=== PATIENT | male | born 1935 | race Caucasian/White ===

== ENCOUNTER 2022-09-07 09:19 | Inpatient (IN) ==
[2022-09-07] MEDS ORDERED: IOPAMIDOL 100 ML BOTTLE IV ONE (09:20)
--- NOTE | 2022-09-07 09:33 | Emergency Department Note ---
Neuro HPI General Chief Complaint: Stroke Symptoms Stated Complaint: STROKE SX Time Seen by Provider: 09/07/22 09:30 Source: patient and family () Mode of arrival: wheelchair Limitations: no limitations and altered mental status History of Present Illness HPI Narrative: Narrative: 87-year-old male presents to the emergency department because of acute onset left upper extremity weakness with decreased sensation. states it began at 9 AM. States he had some confusion last night when he chewed an antibiotic capsule instead of swallowing it. It was for a UTI. This morning he asked repeatedly what they were going to do today which was atypical. He was able to stand and walk without assistance. His hands seem to stop working on the left side. He also said it felt numb. He came to the emerged department for further evaluation. states that he had no speech difficulties and no facial asymme try. States that he fell 2 weeks ago primarily scraping his arms but did not require evaluation and did not apparently hit his head. Patient has history of atrial fibrillation for which she was taking a blood thinner but unable to tell us what blood thinner he is on presently. Has history of hypertension and stage IIIb kidney disease along with UTI and multiple other medical problems. On Anticoagulants: Yes Related Data Home Medications Medication Instructions Recorded Confirmed vit C 226 mg-vit E 90 mg-copper 1 cap PO QDAY 11/10/19 09/07/22 0.8 mg-zinc oxide-lutein 5 mg capsule (PreserVision Lutein) amiodarone 200 mg tablet 200 mg PO DAILY@1400 06/16/22 09/07/22 cyanocobalamin (vitamin B-12) 2,500 mcg PO DAILY 07/15/22 09/07/22 2,500 mcg tablet ferrous sulfate 325 mg (65 mg 650 mg PO QPMCC 07/15/22 09/07/22 iron) tablet cholecalciferol (vitamin D3) 50 2,000 unit PO DAILY 09/07/22 09/07/22 mcg (2,000 unit) capsule docusate sodium 50 mg capsule 50 mg PO DAILYP PRN Constipation 09/07/22 09/07/22 fluticasone propionate 50 1 spray intranasal DAILY 09/07/22 09/07/22 mcg/actuation nasal spray,suspension (Flonase Allergy Relief) omega-3 fatty acids 1,000 mg 1,000 mg PO HS 09/07/22 09/07/22 capsule propranolol 60 mg capsule,24 60 mg PO QDAY 09/07/22 09/07/22 hr,extended release Previous Rx's Medication Instructions Recorded tamsulosin 0.4 mg capsule 0.4 mg PO QHS #90 caps 06/16/22 carbamide peroxide 6.5 % ear drops 5 drp otic (ear) Q12H 4 days #15 mL 07/15/22 (Debrox) amlodipine 5 mg tablet 5 mg PO QDAY #90 tabs 08/22/22 cephalexin 500 mg capsule 500 mg PO QID #28 caps 09/01/22 Allergies Allergy/AdvReac Type Severity Reaction Status Date / Time benazepril [From Lotensin] AdvReac Mild Cough Verified 09/07/22 09:29 Review of Systems ROS ROS Narrative: Narrative: Constitutional: Denies fever Eyes: Denies eye discharge ENT ED: Denies throat pain Cardiovascular: Denies chest pain Respiratory: Denies shortness of breath Gastrointestinal: Denies abdominal pain, nausea or vomiting Genitourinary: Reports dysuria (Receiving antibiotics for UTI presently.) Musculoskeletal: Reports other (Left upper extremity unable to move his fingers or parts administrator normally. Also has decreased sensation in that extremity.); Denies back pain Integumentary: Denies rash Neurological: Reports headache (Mild) PFSH Narrative Patient History Narrative: Narrative: Medical/Surgical/Family History All Active Problems (Updated 09/07/22 @ 11:12 by Gildardo Velasquez MD) Acute UTI (Acute) Brain TIA (Acute) Hyperkalemia (Acute) Chronic kidney disease, stage 3b (Chronic) Sacral dysfunction (Acute) Chronic low back pain (Acute) Normocytic anemia (Acute) Atrial fibrillation (Acute) Cerumen impaction (Acute) Hypersomnia (Acute) Weakness (Acute) HLD (hyperlipidemia) (Acute) Medicare annual wellness visit, subsequent (Acute) GERD (gastroesophageal reflux disease) (Chronic) Pes planus (Chronic) Equinus deformity of foot, acquired (Chronic) Plantar fasciitis (Chronic) Tibial tendinitis, posterior (Chronic) Essential tremor (Chronic) Encounter for Health Maintenance Examination in Adult (Chronic) History of prostate biopsy (Chronic 04/14/07) History of esophagogastroduodenoscopy (Chronic 07/07/12) History of colonoscopy (Chronic 07/07/12) Urinary obstruction (Chronic) Asymptomatic premature ventricular contractions (Chronic 04/06/13) Prostate cancer (Chronic) Hypertension, essential (Chronic) Esophageal stricture (Chronic 04/06/13) Dysphagia (Chronic) Duodenal ulcer (Chronic 04/06/13) Constipation (Chronic) History of colonic polyps (Chronic) Back pain (Chronic) Actinic keratosis (Chronic) Medical History Actinic keratosis leukoplakia lower lip--retin-A--f/u Dr. Vega Asymptomatic premature ventricular contractions (04/06/13) see 03/2013 HPI Back pain H/O low back pain, lumbar radiculopathy--operated 2002. Pain Clinic sequence 2007, now stable Chronic low back pain Constipation Vague constipation sxs, occ. slight dysphagia, gassiness, abdominal fullness --all chronic and nonprogressive. Soft tissue neck CT 2008 Duodenal ulcer (04/06/13) see 03/2013 HPI Dysphagia 07/17/12--EDG--Dr. Jewell--Esophageal stricture with dilation, hiatal hernia, acute duodenal ulcers. Negative JEANNE test. Biopsy pending. 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 Jewell Hypertension, essential Medicare annual wellness visit, subsequent Pes planus 06/13/2015[place] Plantar fasciitis 06/13/2015[place] Prostate cancer Prostate Biopsy 04/14/07 w/combined Janet's score of 6. Seed implant 05/2007, Dr. Lorne White. Obstructive symptoms resolved. 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 Negative JEANNE test. Biopsy pending. History of prostate biopsy (04/14/07) Prostate biopsy 04/04. Combined [place]'s score 6. Prostate seed implant 06/04, Dr. Lorne White. Family History Unknown Essential hypertension Cerebrovascular accident Brother Malignant neoplasm Brother-prostate CA 2nd brother CA pancreas Social History Smoking Status: Never smoker Alcohol Intake Frequency: does not drink Substance Use: does not use Exam Narrative Narrative: Narrative: General Limitations: no limitations and altered mental status General appearance: Present alert and in no apparent distress Head Head: Present atraumatic and normocephalic Eye Eye: Present normal appearance; Absent scleral icterus ENT ENT: Present normal oropharynx, mucous membranes moist and normal external ear exam Neck Neck: Present normal inspection Respiratory Respiratory: Present normal lung sounds bilaterally; Absent respiratory distress Cardiovascular Cardiovascular: Present regular rate and normal rhythm Adbominal Abdominal: Present soft; Absent tenderness Extremities Extremities: Present other (Right hand able to parts administrator normally. Left hand able to parts administrator well though may be slight weakness. ) Back Back: Present normal inspection; Absent tenderness Neurological Neurological: Present alert, oriented X3 and other (Xkptev-ly-[id number] coordination left upper extremity slightly off.) Psychiatric Psychiatric: Present normal affect and normal mood Skin Skin: Present warm (WNL) and dry Course Reevaluation(s) Reevaluation #1: At this time patient states that his left upper extremity is back to normal. No loss of sensation and no weakness. Advised patient that we would be admitting him to the hospital most likely for his stroke or TIA. Time: 10:55 Consultations Consultation #1: Dr. Light: if on thinner, not a candidate for TPA. poss. CVA vs. TIA. check CT. Time: 09:38 Consultation #2: Discussed with Dr. Light. He recommends admission to the hospital under local stroke protocol. Time: 10:55 Vital Signs Vital signs: Vital Signs Temperature 97 F 09/07/22 09:20 Pulse Rate 62 09/07/22 09:20 Respiratory Rate 18 09/07/22 09:20 Blood Pressure 124/57 09/07/22 09:20 Pulse Oximetry (%) 100 09/07/22 09:20 Oxygen Delivery Method Room Air 09/07/22 09:20 Temperature 97.8 F 09/07/22 20:01 Pulse Rate 58 L 09/07/22 20:01 Respiratory Rate 19 09/07/22 20:01 Blood Pressure 118/60 09/07/22 20:01 Pulse Oximetry (%) 100 09/07/22 20:01 Oxygen Delivery Method Room Air 09/07/22 20:01 MDM MDM Narrative Medical decision making narrative: Narrative: 87-year-old male with sudden onset left upper extremity weakness this morning 9 AM. Differential includes acute stroke, thrombotic versus embolic. Possible vessel occlusion. TIA. Peripheral nerve palsy. CT scan of the head was obtained and was read by the radiologist as unrem arkable. CT angiogram of the head and neck did not show acute vessel obstruction. There was some calcifications. Maximal occlusion approximately 30%. White count normal at 7.4. Hemoglobin mildly low at 13.1. INR was 1.2. Electrolytes were normal. BUN mildly elevated at 29 with creatinine elevated at 1.8. Previous creatinine 6 days ago was 1.5. Glucose was normal. Case was discussed with Dr. Light the teleneurologist. He will review the CT scan and advise subsequently. Discussed with Dr. Anya Mistry. He also sent over note. CT scan of the head was negative CTA did not require acute intervention he recommends admit for local stroke protocol with blood pressure management. Recommends n.p.o. until swallow and to hold anticoagulation until the MRI of the brain. Recommends aspirin 81 m g in the interim which I will order here in the ER. Discussed with the patient and spouse and have placed a call to the hospitalist for admission. Requested hospitalist at 11:00 to discuss admission. Hospitalist reviewed the chart and accepted the patient for admission. Sepsis Sepsis Identified: No Lab Data 09/07/22 08:30 Labs: Lab Results 09/07/22 09/07/22 09/07/22 Range/Units 08:30 08:30 08:30 WBC 7.4 (4.5-11.0) K/mcL RBC 4.05 L (4.63-6.08) M/mcL Hgb 13.1 L (13.7-17.5) g/dL Hct 39.5 L (40.1-51.0) % POC Hct (41-55) MCV 97.5 (80.0-100.0) fL MCH 32.3 (26.0-34.0) pg MCHC 33.2 (31.0-36.0) g/dL RDW 13.8 (11.5-14.5) % Plt Count 218 (140-440) K/mcL MPV 10.3 (8.8-12.5) fL Immature Gran % (Auto) 0.5 (0.0-0.5) % Neut % (Auto) 56.2 (38.0-78.0) % Lymph % (Auto) 28.0 (15.5-49.0) % [place] % (Auto) 12.0 (1.0-12.0) % Eos % (Auto) 2.6 (0.0-7.0) % Baso % (Auto) 0.7 (0.0-2.0) % Lymph # (Auto) 2.07 (1.50-4.80) K/mcL [place] # (Auto) 0.89 (0.10-0.90) K/mcL Eos # (Auto) 0.19 (0.00-0.70) K/mcL Baso # (Auto) 0.05 (0.00-0.30) K/mcL Immature Gran # 0.04 (0.00-0.05) K/mcl Absolute Neutrophils 4.16 (1.80-8.00) K/mcL POC PT (11.9-14.5) POC INR (0.8-1.2) APTT 32.2 (20.0-37.0) sec POC Sodium (133-145) POC Potassium (3.3-5.1) POC Chloride (96-108) POC Total CO2 (22-30) POC BUN (6-20) POC Creatinine (0.6-1.2) POC Glucose (70-105) POC WB Ioniz Calcium (1.16-1.32) Total Bilirubin 0.3 (0.1-1.0) mg/dL Direct Bilirubin < 0.2 (0-0.3) mg/dL AST 24 (<40) U/L ALT 21 (<40) U/L Alkaline Phosphatase 124 H (39-117) U/L Total Protein 7.0 (5.9-8.4) gm/dL Albumin 4.1 (3.2-5.2) gm/dL Globulin 2.9 (2.2-3.7) gm/dL Urine Color Urine Appearance (Clear) Urine pH (5.0-9.0) Ur Specific [place] (1.000-1.035) Urine Protein (Negative) mg/dL Urine Glucose (UA) (Negative) mg/dL Urine Ketones (Negative) mg/dL Urine Occult Blood (Negative) mg/dL Urine Nitrate (Negative) Urine Bilirubin (Negative) mg/dL Urine Urobilinogen mg/dL Ur Leukocyte Esterase (Negative) /uL Ur Culture Indicated? 09/07/22 09/07/22 09/07/22 Range/Units 09:13 09:38 11:05 WBC (4.5-11.0) K/mcL RBC (4.63-6.08) M/mcL Hgb (13.7-17.5) g/dL Hct (40.1-51.0) % POC Hct 39.0 L (41-55) MCV (80.0-100.0) fL MCH (26.0-34.0) pg MCHC (31.0-36.0) g/dL RDW (11.5-14.5) % Plt Count (140-440) K/mcL MPV (8.8-12.5) fL Immature Gran % (Auto) (0.0-0.5) % Neut % (Auto) (38.0-78.0) % Lymph % (Auto) (15.5-49.0) % [place] % (Auto) (1.0-12.0) % Eos % (Auto) (0.0-7.0) % Baso % (Auto) (0.0-2.0) % Lymph # (Auto) (1.50-4.80) K/mcL [place] # (Auto) (0.10-0.90) K/mcL Eos # (Auto) (0.00-0.70) K/mcL Baso # (Auto) (0.00-0.30) K/mcL Immature Gran # (0.00-0.05) K/mcl Absolute Neutrophils (1.80-8.00) K/mcL POC PT 13.8 (11.9-14.5) POC INR 1.2 (0.8-1.2) APTT (20.0-37.0) sec POC Sodium 141 (133-145) POC Potassium 3.9 (3.3-5.1) POC Chloride 106 (96-108) POC Total CO2 27.0 (22-30) POC BUN 29 H (6-20) POC Creatinine 1.8 H (0.6-1.2) POC Glucose 85 (70-105) POC WB Ioniz Calcium 1.24 (1.16-1.32) Total Bilirubin (0.1-1.0) mg/dL Direct Bilirubin (0-0.3) mg/dL AST (<40) U/L ALT (<40) U/L Alkaline Phosphatase (39-117) U/L Total Protein (5.9-8.4) gm/dL Albumin (3.2-5.2) gm/dL Globulin (2.2-3.7) gm/dL Urine Color Straw Urine Appearance Clear (Clear) Urine pH 6.0 (5.0-9.0) Ur Specific [place] 1.039 (1.000-1.035) Urine Protein Negative (Negative) mg/dL Urine Glucose (UA) Negative (Negative) mg/dL Urine Ketones Negative (Negative) mg/dL Urine Occult Blood Negative (Negative) mg/dL Urine Nitrate Negative (Negative) Urine Bilirubin Negative (Negative) mg/dL Urine Urobilinogen Negative mg/dL Ur Leukocyte Esterase Negative (Negative) /uL Ur Culture Indicated? No EKG Data EKG #1: EKG attestation: Yes I reviewed and interpreted this EKG. EKG shows normal: sinus rhythm Rate: normal Rhythm: NSR [place]/QRS: normal Voltage: normal Heart block present: 1st Degree ST segment elevation in: None ST segment depression in: None Hyperacute T waves: None QRS morphology: Present normal Interpretation: other (Abnormal EKG. First-degree heart block.) Discharge Plan Patient/Caregiver Discharge Instructions Pt seen by SKIP PIT WORKER/PA only: No Clinical Impression: Brain TIA Patient Disposition: Xfer As Inpt ([facility]) Condition: Serious Discharge Date/Time: 09/07/22 13:51
[2022-09-07 09:42] LABS: POC Calcium, Ionized 1.24 (1.16-1.32); POC Creatinine 1.8 (0.6-1.2); POC Potassium 3.9 (3.3-5.1)
[2022-09-07 10:08] LABS: Basophils # (Auto) 0.05 K/mcL (0.00-0.30); Basophils % (Auto) 0.7 % (0.0-2.0); Eosinophils # (Auto) 0.19 K/mcL (0.00-0.70); Eosinophils % (Auto) 2.6 % (0.0-7.0); Hematocrit 39.5 % (40.1-51.0); Hemoglobin 13.1 g/dL (13.7-17.5); Lymphocytes # (Auto) 2.07 K/mcL (1.50-4.80); Mean Cell Volume 97.5 fL (80.0-100.0); Mean Corpuscular HGB Conc 33.2 g/dL (31.0-36.0); Mean Platelet Volume 10.3 fL (8.8-12.5); Monocytes # (Auto) 0.89 K/mcL (0.10-0.90); Neutrophils % (Auto) 56.2 % (38.0-78.0); Platelet Count 218 K/mcL (140-440); RBC 4.05 M/mcL (4.63-6.08); Red Cell Distribution Width 13.8 % (11.5-14.5); WBC 7.4 K/mcL (4.5-11.0)
[2022-09-07 10:15] LABS: POC INR 1.2 (0.8-1.2); POC Pro Time 13.8 (11.9-14.5)
[2022-09-07] MEDS ORDERED: ASPIRIN 81 MG TAB.CHEW CHEWED ONE (11:03)
[2022-09-07 11:19] LABS: ALT/SGPT 21 U/L (<40); AST/SGOT 24 U/L (<40); Albumin 4.1 gm/dL (3.2-5.2); Alkaline Phosphatase 124 U/L (39-117); Bilirubin,Direct < 0.2 mg/dL (0-0.3); Bilirubin,Total 0.3 mg/dL (0.1-1.0); Globulin 2.9 gm/dL (2.2-3.7)
[2022-09-07 11:52] LABS: Appearance,Urine CLEAR (Clear); Bilirubin,Urine Negative (Negative); Color,Urine STRAW; Culture Indicated,Urine No; Glucose,Urine (UA) Negative (Negative); Ketones,Urine Negative (Negative); Leukocyte Esterase,Urine Negative /uL (Negative); Nitrate,Urine Negative (Negative); Protein,Urine Negative (Negative); Specific Gravity,Urine 1.039 (1.000-1.035); Urine Blood Negative (Negative); Urobilinogen,Urine Negative
[2022-09-07] MEDS ORDERED: ONDANSETRON 4 MG/2 ML VIAL IV PRN (13:53)
[2022-09-07] MEDS ORDERED: ACETAMINOPHEN 325 MG TABLET PO PRN (13:53)
--- NOTE | 2022-09-07 14:35 | Internal Med History&Physical ---
HPI History of Present Illness Patient information: Note initiated : 09/07/22 at 2:30 pm Service Date, if different from initiated Date: [] Patient: Sherman Sims a 87 y/o M admitted on 09/07/22 for STROKE SX. Chief Complaint: [Left upper extremity hemiparesis] Chief complaint: Left upper extremity numbness History of present illness: Mr. Sims is a 87 year old M with a past medical history significant for atrial fibrillation, BPH, hyperlipidemia, and CKD stage III who presents to the hospital with left upper extremity hemiparesis which started this morning around 9 AM. The patient overall is a poor historian and history is obtained secondhand from chart review, and nursing. He was in his usual state of health however was recently being treated for suspected urinary tract infection with Keflex. Per his , he began to experience left-sided hemiparesis this morning. There is no evidence of visual disturbance, gait disturbance, or aphasia. The patient was brought to the ER for further management and evalu ation of suspected stroke. On arrival he was hemodynamically stable and afebrile. The telemetry stroke service was consulted and tPA was not given as the patient is on anticoagulation. His symptoms resolved within 24-hour period. The hospital service was asked to admit the patient for further management and evaluation of suspected TIA. Of note, the patient walks with a cane. He did have a recent fall 2 weeks ago. Medication reconciliation is pending. It is unclear if the patient is definitively still on anticoagulation. It is not on his home medication list that was faxed per the . Further clarification will be needed Review of Systems All systems: reviewed and no additional remarkable complaints except as stated Constitutional Constitutional: Present as per HPI EENT Eyes: Present as per HPI; Absent blurry vision Cardiovascular Cardiovascular: Present as per HPI; Absent chest pain, dyspnea, dyspnea on exertion, leg edema or palpatations Respiratory Respiratory: Present as per HPI; Absent cough, dyspnea, dyspnea on exertion, wheezing or stridor Gastrointestinal Gastrointestinal: Present as per HPI; Absent abdominal pain, diarrhea, dysphagia, hematemesis, melena, nausea or vomiting Musculoskeletal Musculoskeletal: Present as per HPI; Absent joint swelling, limited range of motion, muscle cramps, muscle weakness or myalgias Integumentary Integumentary: Present as per HPI; Absent erythema, new lesions, rash or wounds Neurological Neurological: Present as per HPI; Absent abnormal gait, behavioral changes, focal weakness, headache(s), loss of vision, numbness, sensory deficit or syncope Endocrine Endocrine: Absent change in body appearance, fatigue or heat intolerance Hematologic/Lymphatic Hematologic/Lymphatic: Present as per HPI PFSH PFSH All Active Problems (Updated 09/07/22 @ 11:12 by Gildardo Velasquez MD) Acute UTI (Acute) Brain TIA (Acute) Hyperkalemia (Acute) Chronic kidney disease, stage 3b (Chronic) Sacral dysfunction (Acute) Chronic low back pain (Acute) Normocytic anemia (Acute) Atrial fibrillation (Acute) Cerumen impaction (Acute) Hypersomnia (Acute) Weakness (Acute) HLD (hyperlipidemia) (Acute) Medicare annual wellness visit, subsequent (Acute) GERD (gastroesophageal reflux disease) (Chronic) Pes planus (Chronic) Equinus deformity of foot, acquired (Chronic) Plantar fasciitis (Chronic) Tibial tendinitis, posterior (Chronic) Essential tremor (Chronic) Encounter for Health Maintenance Examination in Adult (Chronic) History of prostate biopsy (Chronic 04/14/07) History of esophagogastroduodenoscopy (Chronic 07/07/12) History of colonoscopy (Chronic 07/07/12) Urinary obstruction (Chronic) Asymptomatic premature ventricular contractions (Chronic 04/06/13) Prostate cancer (Chronic) Hypertension, essential (Chronic) Esophageal stricture (Chronic 04/06/13) Dysphagia (Chronic) Duodenal ulcer (Chronic 04/06/13) Constipation (Chronic) History of colonic polyps (Chronic) Back pain (Chronic) Actinic keratosis (Chronic) Medical History Actinic keratosis leukoplakia lower lip--retin-A--f/u Dr. Vega Asymptomatic premature ventricular contractions (04/06/13) see 03/2013 HPI Back pain H/O low back pain, lumbar radiculopathy--operated 2002. Pain Clinic sequence 2007, now stable Chronic low back pain Constipation Vague constipation sxs, occ. slight dysphagia, gassiness, abdominal fullness--all chronic and nonprogressive. Soft tissue neck CT 2008 Duodenal ulcer (04/06/13) see 03/2013 HPI Dysphagia 07/17/12--EDG--Dr. Jewell--Esophageal stricture with dilation, hiatal hernia, acute duodenal ulcers. Negative JEANNE test. Biopsy pending. 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 Jewell Hypertension, essential Medicare annual wellness visit, subsequent Pes planus 06/13/2015[place] Plantar fasciitis 06/13/2015[place] Prostate cancer Prostate Biopsy 04/14/07 w/combined Janet's score of 6. Seed implant 05/2007, Dr. Lorne White. Obstructive symptoms resolved. 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 Jewell--Esophageal stricture with dilation, hiatal hernia, acute duodenal ulcers. Negative JEANNE test. Biopsy pending. History of prostate biopsy (04/14/07) Prostate biopsy 04/04. Combined Janet's score 6. Prostate seed implant 06/04, Dr. Lorne White. Family History Unknown Essential hypertension Cerebrovascular accident Brother Malignant neoplasm Brother-prostate CA 2nd brother CA pancreas Social History household members: spouse housing: house lives independently: Yes marital status: education level: college occupational status: retired smoking status: Never smoker alcohol intake frequency: does not drink substance use type: does not use MEDS/ALLERGIES Home Medications and Allergies Home Medications Medication Instructions Recorded Confirmed Type vit C 226 mg-vit E 90 mg-copper 1 cap PO QDAY 11/10/19 09/07/22 History 0.8 mg-zinc oxide-lutein 5 mg capsule (PreserVision Lutein) amiodarone 200 mg tablet 200 mg PO DAILY@1400 06/16/22 09/07/22 History tamsulosin 0.4 mg capsule 0.4 mg PO QHS #90 caps 06/16/22 09/07/22 Rx carbamide peroxide 6.5 % ear drops 5 drp otic (ear) Q12H 4 days #15 mL 07/15/22 09/07/22 Rx (Debrox) cyanocobalamin (vitamin B-12) 2,500 mcg PO DAILY 07/15/22 09/07/22 History 2,500 mcg tablet ferrous sulfate 325 mg (65 mg 325 mg PO QAC 07/15/22 09/07/22 History iron) tablet amlodipine 5 mg tablet 5 mg PO QDAY #90 tabs 08/22/22 09/07/22 Rx cephalexin 500 mg capsule 500 mg PO QID #28 caps 09/01/22 09/07/22 Rx cholecalciferol (vitamin D3) 50 2,000 unit PO DAILY 09/07/22 09/07/22 History mcg (2,000 unit) capsule docusate sodium 50 mg capsule 50 mg PO DAILYP PRN Constipation 09/07/22 09/07/22 History fluticasone propionate 50 1 spray intranasal DAILY 09/07/22 09/07/22 History mcg/actuation nasal spray,suspension (Flonase Allergy Relief) omega-3 fatty acids 1,000 mg 1,000 mg PO DAILY 09/07/22 09/07/22 History capsule propranolol 60 mg capsule,24 60 mg PO QDAY 09/07/22 09/07/22 History hr,extended release Allergies Allergy/AdvReac Type Severity Reaction Status Date / Time benazepril [From Lotensin] AdvReac Mild Cough Verified 09/07/22 09:29 EXAM Constitutional Vitals: Temp Pulse Resp BP Pulse Ox O2 Del Method 97 F 59 L 21 115/76 96 Room Air 09/07/22 09:20 09/07/22 13:15 09/07/22 13:15 09/07/22 13:15 09/07/22 13:15 09/07/22 09:36 General appearance: average body habitus Head Head exam: Present atraumatic, normal inspection and normocephalic Eye Eye exam: Present EOMI, normal appearance and PERRL; Absent conjunctival injection ENT ENT exam: Present normal exam; Absent mucous membranes dry Neck Neck exam: Present full ROM; Absent lymphadenopathy Respiratory Respiratory exam: Present normal respiratory exam and CTAB; Absent decreased breath sounds, respiratory distress or wheezes Cardiovascular Cardiovascular exam: Present normal rate and rhythm and RRR; Absent JVD GI/Abdominal GI/Abdominal exam: Present normal bowel sounds and soft; Absent diminished bowel sounds, distended, guarding, mass, rebound or tenderness Neurological Exam Neurological exam: Present alert, CN II-XII intact and oriented X3 Psychiatric Psychiatric exam: Present normal affect and normal mood Skin Skin exam: Present intact and warm; Absent erythema, pallor, petechiae or rash DATA Data Completed and Pending Labs: Labs from last 24 hours 09/07/22 09/07/22 09/07/22 11:05 09:38 09:13 WBC RBC Hgb Hct POC Hct 39.0 L MCV MCH MCHC RDW Plt Count MPV Immature Gran % (Auto) Neut % (Auto) Lymph % (Auto) [place] % (Auto) Eos % (Auto) Baso % (Auto) Lymph # (Auto) [place] # (Auto) Eos # (Auto) Baso # (Auto) Immature Gran # Absolute Neutrophils POC PT 13.8 POC INR 1.2 APTT POC Sodium 141 POC Potassium 3.9 POC Chloride 106 POC Total CO2 27.0 POC BUN 29 H POC Creatinine 1.8 H POC Glucose 85 POC WB Ioniz Calcium 1.24 Total Bilirubin Direct Bilirubin AST ALT Alkaline Phosphatase Total Protein Albumin Globulin Urine Color Straw Urine Appearance Clear Urine pH 6.0 Ur Specific [place] 1.039 Urine Protein Negative Urine Glucose (UA) Negative Urine Ketones Negative Urine Occult Blood Negative Urine Nitrate Negative Urine Bilirubin Negative Urine Urobilinogen Negative Ur Leukocyte Esterase Negative Ur Culture Indicated? No 09/07/22 09/07/22 09/07/22 08:30 08:30 08:30 WBC 7.4 RBC 4.05 L Hgb 13.1 L Hct 39.5 L POC Hct MCV 97.5 MCH 32.3 MCHC 33.2 RDW 13.8 Plt Count 218 MPV 10.3 Immature Gran % (Auto) 0.5 Neut % (Auto) 56.2 Lymph % (Auto) 28.0 [place] % (Auto) 12.0 Eos % (Auto) 2.6 Baso % (Auto) 0.7 Lymph # (Auto) 2.07 [place] # (Auto) 0.89 Eos # (Auto) 0.19 Baso # (Auto) 0.05 Immature Gran # 0.04 Absolute Neutrophils 4.16 POC PT POC INR APTT 32.2 POC Sodium POC Potassium POC Chloride POC Total CO2 POC BUN POC Creatinine POC Glucose POC WB Ioniz Calcium Total Bilirubin 0.3 Direct Bilirubin < 0.2 AST 24 ALT 21 Alkaline Phosphatase 124 H Total Protein 7.0 Albumin 4.1 Globulin 2.9 Urine Color Urine Appearance Urine pH Ur Specific [place] Urine Protein Urine Glucose (UA) Urine Ketones Urine Occult Blood Urine Nitrate Urine Bilirubin Urine Urobilinogen Ur Leukocyte Esterase Ur Culture Indicated? A/P Assessment and plan (1) Acute UTI: Status: Acute (2) Brain TIA: Status: Acute (3) Chronic kidney disease, stage 3b: Status: Chronic (4) Atrial fibrillation: Status: Acute Narrative A/P Narrative: The patient's symptoms are consistent with TIA that may have been cardioembolic in etiology as he does have a history of atrial fibrillation. His anticoagulation status needs to be clarified. At this time he will likely need to continue Eliquis for secondary stroke prevention. CTA head and neck are pending. MRI is pending. Will obtain an echocardiogram. He will be monitored on telemetry. Medication reconciliation is pending. We will update POLST once received. Per patient's report, he would like to be full code for the time being. Time Spent With Patient Time: Total time spent is greater than 50% in coordination of care (as documented) at patient's floor/unit and/or counseling patient: Initial: Total time with patient: 75 - 90 minutes QUALITY Stroke Symptom Onset Unknown: No
--- NOTE | 2022-09-07 14:46 | Cat Scan Report ---
CLINICAL INFORMATION: Code stroke COMPARISON: None. TECHNIQUE: 2.5 mm helical slices were obtained in the skull base to vertex. Following reconstruction, axial reformatted images were reviewed at bone and parenchymal windows. The exam was performed using radiation dose optimization techniques including, but not limited to, automated exposure control, adjustment of the mA and/or kV according to patient size and use of iterative reconstruction technique. FINDINGS: The ventricles, sulci, fissures, and cisterns are symmetrically enlarged compatible with moderate age-related atrophy. No extra-axial fluid collections are identified. Moderate patchy chronic ischemic changes, in the deep cerebral white matter, are expected for age. A 6 mm remote lacunar infarct is seen in the right caudate nucleus. There is also a 5 mm lacunar infarct in the left lentiform nucleus. There is no hemorrhage, mass effect, or edema. Bone windows show no osseous abnormality. IMPRESSION: Moderate atrophy and chronic ischemic changes in the deep cerebral white matter-expected for age. Remote lacunar infarcts in the basal ganglia. No intracerebral hemorrhage, edema or other acute finding. Interpreted and Authenticated by: Heladio Cortés 09/07/22
--- NOTE | 2022-09-07 14:53 | Cat Scan Report ---
CLINICAL INFORMATION: Code stroke COMPARISON: None. TECHNIQUE: 80 cc of Isovue-370 were injected intravenously , and using SmartPrep to maximize cerebral arterial opacification, 0.625 mm helical slices were obtained from the skull base through the cerebral vertex. Following reconstruction , sagittal, coronal and axial reformatted images were processed and reviewed at multiple windows and levels. 3D volume rendered and MIP images were acquired at a independent workstation. The exam was performed using radiation dose optimization techniques including, but not limited to, automated exposure control, adjustment of the mA and/or kV according to patient size and use of iterative reconstruction technique. FINDINGS: The intracranial internal carotid, vertebral, basilar, anterior, middle and posterior cerebral arteries and their branches are well-opacified and normal in contour and caliber without significant stenosis, occlusion or other pathology. Superficial/deep cerebral veins and deep venous sinuses are widely patent IMPRESSION: Normal exam Interpreted and Authenticated by: Heladio Cortés 09/07/22
--- NOTE | 2022-09-07 15:30 | Cat Scan Report ---
CLINICAL INFORMATION: Code stroke COMPARISON: None. TECHNIQUE: 80 cc of Isovue-300 were injected intravenously followed by 40 cc of normal saline flush. Using SmartPrep, 0.625 helical slices were obtained from the thoracic aortic arch through the beaver of Dior. Following reconstruction, 2.5 mm sagittal, coronal and axial reformatted images were processed. MIPS , 3-D volume rendering and CPR images were also constructed. The exam was performed using radiation dose optimization techniques including, but not limited to, automated exposure control, adjustment of the mA and/or kV according to patient size and use of iterative reconstruction technique. FINDINGS: The thoracic aortic arch is normal diameter with minimal intimal thickening. Left vertebral artery originates roughly from the thoracic aortic arch-a normal variant. There is a 50% stenosis of the origin of the left vertebral artery. Both common, internal and external carotid and brachycephalic subclavian and right vertebral arteries are widely patent. Moderate mucosal thickening present in both maxillary sinuses compatible with sinusitis. No significant soft tissue abnormality. IMPRESSION: Thoracic aortic arch, all carotid, subclavian, left vertebral arteries are widely patent. A mild (less than 50% stenosis) of the left vertebral artery origin. Left vertebral artery originates from the thoracic aortic arch-normal variant. Mild bilateral maxillary sinusitis. Interpreted and Authenticated by: Heladio Cortés 09/07/22
[2022-09-07] MEDS ORDERED: CARBAMIDE PEROXIDE OTIC SOL 15ML AD SCH (16:00)
[2022-09-07] MEDS: AMIODARONE HCL 200 MG TABLET PO SCH (17:20)
[2022-09-07] MEDS: CEPHALEXIN 500 MG CAPSULE PO SCH ×2 (17:20→21:55)
[2022-09-07] MEDS: 0.9 % SODIUM CHLORIDE 10 ML SYRINGE IV SCH ×2 (17:21→21:55)
[2022-09-07] MEDS ORDERED: SENNOSIDES 1 TABLET PO SCH (21:00)
[2022-09-07] MEDS ORDERED: ATORVASTATIN 40 MG TABLET PO SCH (21:00)
[2022-09-07] MEDS ORDERED: TAMSULOSIN 0.4 MG CAPSULE PO SCH (21:00)
[2022-09-07] MEDS: DOCUSATE SODIUM 100 MG CAPSULE PO SCH (21:54)
[2022-09-08] MEDS: 0.9 % SODIUM CHLORIDE 10 ML SYRINGE IV SCH ×2 (04:58→14:18)
[2022-09-08 06:26] LABS: Basophils # (Auto) 0.03 K/mcL (0.00-0.30); Basophils % (Auto) 0.4 % (0.0-2.0); Eosinophils # (Auto) 0.14 K/mcL (0.00-0.70); Eosinophils % (Auto) 2.1 % (0.0-7.0); Hematocrit 37.9 % (40.1-51.0); Hemoglobin 12.9 g/dL (13.7-17.5); Mean Cell Volume 93.8 fL (80.0-100.0); Mean Platelet Volume 9.5 fL (8.8-12.5); Monocytes # (Auto) 0.85 K/mcL (0.10-0.90); Monocytes % (Auto) 12.7 % (1.0-12.0); Neutrophils % (Auto) 60.4 % (38.0-78.0); Platelet Count 211 K/mcL (140-440); RBC 4.04 M/mcL (4.63-6.08); Red Cell Distribution Width 13.5 % (11.5-14.5); WBC 6.7 K/mcL (4.5-11.0)
[2022-09-08 06:45] LABS: Blood Urea Nitrogen 26 mg/dL (8-23); Calcium 8.7 mg/dL (8.6-10.4); Carbon Dioxide 20 mmol/L (22-30); Chloride 108 mmol/L (96-108); Glomerular Filtration Rate 44; Glucose 91 mg/dL (70-105); HDL Cholesterol 46 mg/dL (>40); LDL Cholesterol,Calculated 108 mg/dL (<100); Non-HDL Cholesterol 132 mg/dL (<130); Triglycerides 121 mg/dL (<150)
--- NOTE | 2022-09-08 07:25 | EKG ---
[facility] Test Date: 2022-09-07 Pat Name: Sherman Sims Department: ED Room: Gender: Male Senior It Assistant: : [id number] Requested By: Gildardo Velasquez Order Number: [id number] Reading MD: Heladio Silva M.D. Measurements Intervals [place] Rate: 61 P: 0 ME: 72 QRS: 80 QRSD: 101 T: 56 QT: 463 QTc: 468 Interpretive Statements Sinus rhythm Electronically Signed On 09-08-2022 7:24:45 PDT by Heladio Silva M.D. /[facility] [place]0/[id number]
[2022-09-08] MEDS ORDERED: FLUTICASONE PROPIONATE SPRAY.NAS NS SCH (09:00)
[2022-09-08] MEDS ORDERED: ASPIRIN 81 MG TAB.CHEW CHEWED SCH (09:00)
[2022-09-08] MEDS: DOCUSATE SODIUM 100 MG CAPSULE PO SCH (09:59)
--- NOTE | 2022-09-08 13:27 | Magnetic Resonance Report ---
History: Left upper extremity hemiparesis beginning on 09/07/22. Symptoms had resolved within 24 hours TECHNIQUE: Stroke protocol was performed using multiple pulse sequences. Endings: There is a cluster of five small petechial nonhemorrhagic infarcts in the cortex high in the right parietal lobe. The largest is located laterally and measures 4 x 8 mm. There is no surrounding edema and no hemorrhage is present. These were not seen on the prior CT scan. Patient has age-related degenerative changes with mild to moderate generalized atrophy. There is moderate dilatation of the lateral third ventricles. Large confluent areas of abnormal increased signal are present in the wolfe radiata and centrum semiovale throughout the frontal and parietal lobes with milder involvement in the posterior temporal and occipital lobes. No abnormal extra-axial fluid collection is present. IMPRESSION: Small recent infarcts in the cortex involving the right parietal lobe Moderate age-related degenerative changes Interpreted and Authenticated by: Saad Silva 09/08/22
[2022-09-08] MEDS: AMIODARONE HCL 200 MG TABLET PO SCH (14:18)
--- NOTE | 2022-09-08 15:11 | Discharge Summary ---
Discharge Provider Provider IMPORTANT FOLLOW-UP INFORMATION FOR PCP: 1. Discuss anticoagulation 2. MoCA eval with PCP 3. Cardiology f/u Patient information: Note initiated : 09/08/22 at 3:10 pm Service Date, if different from initiated Date: [] Patient: Sherman Sims 87 y/o M admitted on 09/07/22 for STROKE SX. Chief Complaint: [] Date of admission: 09/07/22 13:51 Discharge date: 09/08/22 Primary care physician: Heladio Andrade DO Consults: 09/07/22 Consult to Physician [CONS] Stat Comment: Consulting Provider: Khoi Betancur Reason For Exam: Physician to Consult Consult to Physician [CONS] Stat Comment: Consulting Provider: Rylie Melendez Reason For Exam: Physician to Consult 09/07/22 09:30 Consult to Physician [CONS] Stat Comment: Consulting Provider: [facility] Reason For Exam: Physician to Consult COURSE Hospital Course Hospital course: The patient presented with a right upper extremity hemiparesis that resolved within 24 hours. MRI was concerning multiple small areas of infarct in the right cortex concerning for cardioembolic process. The patient previously was prescribed Eliquis however this was stopped for unclear reasons. This has been restarted. He did quite well with physical therapy and Occupational Therapy. Plan was discussed with the who was present at the bedside. I emphasized the importance of follow-up with his primary care physician to discuss full anticoagulation, goals of care, and cognitive screening. Yesterday night, there was concerns for ing. [facility] Discharge diagnosis: TIA/stroke, AF, cognitive impairment Time Spent with Patient Time attestation: Total time spent providing and/or coordinating discharge services: Time spent: Greater than 30 minutes EXAM Constitutional Vitals: Temp Pulse Resp BP Pulse Ox O2 Del Method 97.5 F 58 L 21 107/67 100 Room Air 09/08/22 12:05 09/08/22 00:01 09/08/22 12:05 09/08/22 12:05 09/08/22 12:05 09/08/22 12:05 General appearance: average body habitus Head Head exam: Present atraumatic, normal inspection and normocephalic Eye Eye exam: Present EOMI, normal appearance and PERRL; Absent conjunctival injection ENT ENT exam: Present normal exam; Absent mucous membranes dry Neck Neck exam: Present full ROM; Absent lymphadenopathy Respiratory Respiratory exam: Present normal respiratory exam and CTAB; Absent decreased breath sounds, respiratory distress or wheezes Cardiovascular Cardiovascular exam: Present normal rate and rhythm and RRR; Absent JVD GI/Abdominal GI/Abdominal exam: Present normal bowel sounds and soft; Absent diminished bowel sounds, distended, guarding, mass, rebound or tenderness Neurological Exam Neurological exam: Present alert, CN II-XII intact and oriented X3 Psychiatric Psychiatric exam: Present normal affect and normal mood Skin Skin exam: Present intact and warm; Absent erythema, pallor, petechiae or rash Discharge Data Data Completed and Pending Labs on day of discharge: Labs from last 24 hours 09/08/22 09/08/22 05:42 05:42 WBC 6.7 RBC 4.04 L Hgb 12.9 L Hct 37.9 L MCV 93.8 MCH 31.9 MCHC 34.0 RDW 13.5 Plt Count 211 MPV 9.5 Immature Gran % (Auto) 0.4 Neut % (Auto) 60.4 Lymph % (Auto) 24.0 Mcintosh % (Auto) 12.7 H Eos % (Auto) 2.1 Baso % (Auto) 0.4 Lymph # (Auto) 1.60 [place] # (Auto) 0.85 Eos # (Auto) 0.14 Baso # (Auto) 0.03 Immature Gran # 0.03 Absolute Neutrophils 4.03 Sodium 139 Potassium 3.9 Chloride 108 Carbon Dioxide 20 L Anion Gap 11.0 BUN 26 H Creatinine 1.4 H GFR Calculation 44 Glucose 91 Hemoglobin A1c Pending Estim Average Glucose Pending Calcium 8.7 Triglycerides 121 Cholesterol 178 LDL Cholesterol, Calc 108 H Non-HDL Cholesterol 132 H HDL Cholesterol 46 Discharge Plan Patient/Caregiver Discharge Instructions Activity: increase activity as tolerated Diet: Regular Diet Prescriptions: New Eliquis 2.5 mg tablet 2.5 mg PO BID Qty: 30 0RF Continued PreserVision Lutein 226 mg-200 unit -5 mg-0.8 mg capsule 1 cap PO QDAY amlodipine 5 mg tablet 5 mg PO QDAY Qty: 90 3RF amiodarone 200 mg tablet 200 mg PO DAILY@1400 tamsulosin 0.4 mg capsule 0.4 mg PO QHS Qty: 90 3RF ferrous sulfate 325 mg (65 mg iron) tablet 650 mg PO QPMCC cyanocobalamin (vitamin B-12) 2,500 mcg tablet 2,500 mcg PO DAILY Debrox 6.5 % drops 5 drp otic (ear) Q12H 4 Days Qty: 15 0RF omega-3 fatty acids 1,000 mg Capsule 1,000 mg PO HS docusate sodium 50 mg Capsule 50 mg PO DAILYP PRN (Reason: Constipation) propranolol 60 mg capsule,extended release 24 hr 60 mg PO QDAY fluticasone propionate [Flonase Allergy Relief] 50 mcg/actuation spray,suspension 1 spray intranasal DAILY Rx Instructions: administer into each nostril cholecalciferol (vitamin D3) 2,000 unit capsule 2,000 unit PO DAILY Discontinued cephalexin 500 mg capsule 500 mg PO QID Qty: 28 0RF Follow Up Plan Follow up with: Heladio Anrdade DO [Primary Care Provider] - Patient Disposition: Home Health Service Prognosis: Fair Rehab Potential: Good I certify that the patient requires SNF services: No Overall status at discharge: patient is progressing back to baseline Discharge Orders: Discharge Order (Routine); Ordered 09/08/22 Ordered By: Rylie Melendez
[2022-09-08 16:40] LABS: Estimated Average Glucose(eAG) 120 mg/dL; Hemoglobin A1C 5.8 % Hgb (4.0-6.0)
== END 2022-09-08 15:45 | disposition home health service (06) | DRG 65 ==
LOC: ED 09:19 → ICU 13:51
PROVIDERS: ADMIT Student in an Organized Health Care Education/Training Program; ATTEND Student in an Organized Health Care Education/Training Program